=== PATIENT | female | born 1970 | race Caucasian/White ===

== ENCOUNTER 2017-05-10 05:11 | Emergency (ER) | payer SELFPAY ==
[~2017-05-10] VITALS: Ht 162.6 cm; Wt 59.0 kg
[2017-05-10 05:15] VITALS: BP 125/78
--- NOTE | 2017-05-10 06:21 | PHYS DOC ---
Past History Smoking: Non-smoker Adult General Chief Complaint Chief Complaint: HEADACHE HPI HPI Patient is a 46 year old F who presents with migraine headache. Patient states she broke her foot proximally 3 weeks ago and was seen yesterday at [facility] [place] for a follow-up appointment which they x-rayed it and still has a fracture to her right fifth metatarsal. Patient was placed in a cam boot and on crutches nonweightbearing. Patient states she's been up all night with the foot pain and this developed a severe migraine. Patient states she is a history of migraines and this migraine is consistent with her previous migraines. Patient states she developed migraines after having severe back injury and head trauma. Patient was brought into the emergency room after calling the ER from her truck in the middle the ER parking lot. The nurses went out to assist the patient out of her truck which was stopped in the middle of the parking lot with a wheelchair. Patient was helped out of the car and the wheelchair and brought into the emergency room for evaluation. Patient denies any chest pain or shortness of breath. Patient denies any nausea/vomiting/diarrhea. Patient complains of her right foot pain, lower back pain, migraine. Patient denies any bowel or bladder incontinence. Patient denies any difficulty starting or stopping urine. Patient denies any saddle anesthesia. Patient has no other complaints. Review of Systems Review of Systems GEN: Denies fevers, chills, sweats HEENT: Denies blurred vision, sore throat CV: Denies chest pain RESP: Denies shortness of air, cough GI: Denies n/v/d NEURO: Headache MSK: Right foot pain and lower back pain Allergies Allergies Allergies Coded Allergies Type Severity Reaction Last Updated Verified latex Allergy Intermediate 05/10/17 Yes Physical Exam Physical Exam Vital signs recorded on the chart within normal limits Constitutional: Well developed, well nourished, no acute distress, non-toxic appearance. [] HENT: Normocephalic, atraumatic, bilateral external ears normal, oropharynx moist, no oral exudates, nose normal. [] Eyes: PERRLA, EOMI, conjunctiva normal, no discharge. [] Neck: Normal range of motion, no tenderness, supple, no stridor. [] Cardiovascular:Heart rate regular rhythm, no murmur [] Lungs & Thorax: Bilateral breath sounds clear to auscultation [] Skin: Warm, dry, no erythema, no rash. [] Back: Chronic lower back pain over the lumbar spine the patient has remained comfortable with normal range of motion able to ambulate without issue using crutches. Extremities: No tenderness, no cyanosis, no clubbing, ROM intact, no edema. [] She was in a cam boot Neurologic: Alert and oriented X 3, normal motor function, normal sensory function, no focal deficits noted. [] Psychologic: Affect normal, judgement normal, mood normal. [] Current Patient Data Vital Signs Vital Signs Date Time Temp Pulse Resp B/P (MAP) Pulse Ox O2 Delivery O2 Flow Rate FiO2 05/10/17 05:15 98.1 94 20 98 Room Air Vital Signs Date Time Temp Pulse Resp B/P (MAP) Pulse Ox O2 Delivery O2 Flow Rate FiO2 05/10/17 05:15 98.1 94 20 98 Room Air Lab Results Laboratory Tests Test 05/10/17 05:52 POC Urine HCG, Qualitative hcg negative (Negative) EKG EKG [] Radiology/Procedures Radiology/Procedures [] Course & Med Decision Making Course & Med Decision Making Pertinent Labs and Imaging studies reviewed. (See chart for details) patient presents with a headache it's been persistent daily for last 2 years. She admits she's had problems with headaches since a traumatic injury she sustained. There is nothing new about this particular headache pattern nothing worse not sudden onset no fevers or neck pain associated with. Patient has had no vision changes other than what she normally gets with a little blurred vision which is now resolved. sHe denies any weakness, denies any problems with speech or vision that is different from her present normal pattern. The beginning of her evaluation she began insisting on asking for narcotics for her headache. We had a lengthy discussion about how narcotics are not indicated for chronic migraine headaches. That would use a typical migraine cocktail of Benadryl, Toradol, Tylenol, and Decadron. She also given some antiemetics and fluids she insisted on asking again at approximately 6:30 this morning for more narcotic medication because of her chronic back pain and injury she sustained to her foot. The patient is demonstrated a significant drug-seeking behavior insisting on narcotics for a condition she only has treatment for. Time is now 6:54 AM because the patient hasn't received any narcotic medication she is signing out AGAINST MEDICAL ADVICE for chronic issues. I'm concerned with this patient's presentation that they may be addicted to narcotic medications. Their behavior could be described as drug seeking in nature and I'm concerned that if I do not explain to them my concerns and we have a discussion about how to treat this in the future we will continue to see them using these medications and possibly dangerous manners. We talked about overutilization that the medications associated with narcotics to include acetaminophen when taking large doses can cause liver injury that is permanent nature. We discussed a treatment plan and need for follow-up with a silk screen painter to talk about alternatives to narcotic medications. We also talked about possible psychiatric intervention to help him cope with her chronic pain condition. We also discussed possible social work involvement or addiction treatment involvement to help address the possible withdrawal symptoms that may be experiencing which is causing the further use narcotics in this way. I will take the time to provide them addiction clinic information in the follow- up if they choose to accept my help. Patient is quite lucid and understands risks she is taking my sign out against medical collections. She is not intoxicated in any way shape or form we'll provide her alternatives to treatment for which she is not inclined to accept her try to utilize. Her father and mother are here to help her up from this facility and will transport her home. [] Dragon Disclaimer Dragon Disclaimer This chart was dictated in whole or in part using Voice Recognition software in a busy, high-work load, and often noisy Emergency Department environment. It may contain unintended and wholly unrecognized errors or omissions. Departure Departure: Impression: Primary Impression: Drug-seeking behavior Additional Impressions: Chronic migraine Chronic back pain greater than 3 months duration Nuñez fracture Disposition: 07 AGAINST MEDICAL ADVICE Condition: STABLE Referrals: PCP,NO (PCP) Patient Instructions: Chronic Back Pain, Chronic Pain, Chronic Pain Management , Discharge Against Medical Advice, Recurrent Migraine Headache Additional Instructions: My discharge plan Follow up: In addition patient is asked to followup with their primary doctor, within a week for followup examination and to address patient's ongoing medical conditions. Because patient does not have a regular medical doctor, a local physician Resource Sheet will be provided to establish care primary care. Patient is advised that in the Emergency Department primary complaints are addressed and only in light of known signs and symptoms. Patient should return immediately to the emergency department if new signs and symptoms develop or patient's condition worsens in any way. At time of discharge patient was in stable condition and had verbalized understanding of the discharge instructions. Problem Qualifiers RENUKA SYLVESTER DO May 10, 2017 06:20 NAZARIO HERNANDEZ MD May 10, 2017 06:57
[2017-05-10 06:29] LABS: BARBITURATES NEG (NEG); BENZODIAZEPINES POS (NEG); CANNABINOIDS NEG (NEG); COCAINE NEG (NEG); METHADONE NEG (NEG); OPIATES NEG (NEG); PHENCYCLIDINE NEG (NEG)
[2017-05-10] MEDS ORDERED: IV NORMAL SALINE 1,000ML 1,000 ML IV ONE (06:30)
[2017-05-10] MEDS ORDERED: DEXAMETHASONE SOD PHOS 10 MG/ML VIAL IV ONE (06:30)
[2017-05-10] MEDS ORDERED: KETOROLAC 30 MG/ML VIAL. IV ONE (06:30)
[2017-05-10] MEDS ORDERED: METOCLOPRAMIDE HCL 10 MG/2 ML VIAL. IV ONE (06:30)
[2017-05-10] MEDS ORDERED: diphenhydrAMINE HCL 25 MG CAPSULE PO ONE (06:30)
[2017-05-10] MEDS ORDERED: MAGNESIUM SULFATE 1GM 100 ML IV ONE (06:30)
[2017-05-10 06:32] LABS: BILIRUBIN,URINE NEG (NEG); CLARITY,URINE CLEAR; COLOR,URINE YELLOW; GLUCOSE,URINE NEG (NEG)
[2017-05-10 06:33] LABS: BACTERIA,URINE FEW /HPF (0-FEW); NITRITE,URINE NEG (NEG); RBC,URINE OCC /HPF (0-2); SQUAMOUS EPITHELIAL CELL,UR FEW /LPF; UROBILINOGEN,URINE 0.2 mg/dL (0.2 mg/dL)
[2017-05-10 06:35] LABS: BASO % 1 % (0-3); EOS # 0.2 x10^3/uL (0.0-0.7); EOS % 3 % (0-3); HEMATOCRIT 43.7 % (36.0-47.0); HEMOGLOBIN 14.9 g/dL (12.0-15.5); LYMPH # 2.4 x10^3/uL (1.0-4.8); LYMPH % 38 % (24-48); MEAN CORPUSCULAR HEMOGLOBIN 31 pg (25-35); MEAN CORPUSCULAR HGB CONC 34 g/dL (31-37); MEAN CORPUSCULAR VOLUME 91 fL (79-100); MONO # 0.5 x10^3/uL (0.0-1.1); MONO % 9 % (0-9); NEUT # 3.2 x10^3uL (1.8-7.7); NEUT % 50 % (31-73); PLATELET COUNT 236 x10^3/uL (140-400); RED BLOOD COUNT 4.82 x10^6/uL (3.50-5.40); RED CELL DISTRIBUTION WIDTH 13.7 % (11.5-14.5); WHITE BLOOD COUNT 6.4 x10^3/uL (4.0-11.0)
[2017-05-10 06:37] LABS: AMPHETAMINE/METHAMPHETAMINE NEG (NEG)
[2017-05-10 07:02] LABS: ALBUMIN 3.7 g/dL (3.4-5.0); ALBUMIN/GLOBULIN RATIO 1.3 (1.0-1.7); CALCIUM 8.8 mg/dL (8.5-10.1); CREATININE 0.8 mg/dL (0.6-1.0); GFR 77.9; POTASSIUM 4.1 mmol/L (3.5-5.1); TOTAL BILIRUBIN 0.1 mg/dL (0.2-1.0); TOTAL PROTEIN 6.6 g/dL (6.4-8.2)
== END 2017-05-10 07:08 | disposition left against medical advice (07) ==
LOC: ER 05:11
DX: Z76.5 Malingerer [conscious simulation] (principal); G43.909 Migraine, unspecified, not intractable, without status migrainosus; G89.29 Other chronic pain; M54.5 Low back pain; Z91.040 Latex allergy status
CPT/HCPCS: 36415; 80053; 80307; 81001; 81025; 85025; 87086; 96365; 96375; 99284; G0480; J1100; J1885; J2765; J3475; Q0163; G0479; J7030